=== PATIENT | female | born 1995 | race Asian ===

== ENCOUNTER 2017-09-10 20:30 | Emergency (ER) | payer OTHER ==
[2017-09-10] MEDS ORDERED: NS 1,000 ML IV ONE (21:02)
[2017-09-10] MEDS ORDERED: RANITIDINE 50 MG/2 ML VIAL IVP ONE (21:02)
[2017-09-10] MEDS ORDERED: methylPREDNISolone SOD SUCC 125 MG/2 ML VIAL IVP ONE (21:02)
--- NOTE | 2017-09-10 21:12 | EDPHY ---
H & P Time Seen by Provider: 09/10/17 20:46 HPI/ROS: CHIEF COMPLAINT: Allergic reaction HISTORY OF PRESENT ILLNESS: 22-year-old female presents to the emergency department with pruritic hives and dysphagia that began approximately 1 hour prior to arrival. Patient states that she was lying in bed and then developed sudden onset of diffuse rash. She took 25 mg of oral Benadryl without relief. She feels that she is having difficulty swallowing. She denies sore throat. Denies abdominal pain, nausea or vomiting. 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 Denies headache. Denies reported trauma. No fevers or chills. No recent travel. REVIEW OF SYSTEMS: Constitutional: No fever, no chills. Eyes: No double or blurry vision. ENT: Dysphagia. No sore throat. Respiratory: No cough, no shortness of breath. Cardiac: No chest pain. Gastrointestinal: No abdominal pain, vomiting or diarrhea. Genitourinary: No dysuria. Musculoskeletal: No neck or back pain. Skin: As above Neurological: No headache. Past Medical/Surgical History: Negative Social History: Senior at [employer] studying [employer] Smoking Status: Former smoker Physical Exam: General Appearance: Alert, no distress. Vital signs are stable. Eyes: Pupils equal and round. Extraocular motions are all intact. ENT: Mouth: Mucous membranes moist. Respiratory: No wheezing, rhonchi, or rales, lungs are clear to auscultation. Cardiovascular: Regular rate and rhythm. Gastrointestinal: Abdomen is soft and nontender, no masses, no rebound or guarding, bowel sounds normal. Neurological: Alert and oriented x 3, cranial nerves II through XII grossly intact Skin: Warm and dry. The diffuse erythematous welts consistent with hives to her chest, back and abdomen. Musculoskeletal: Nontender to palpate along the cervical, thoracic or lumbar spine. Neck is supple. Extremities: Full range of motion and no peripheral edema. Psychiatric: Patient is oriented X 3, there is no agitation. Constitutional: Initial Vital Signs Temperature (C) 36.5 C 09/10/17 20:32 Heart Rate 80 09/10/17 20:32 Respiratory Rate 18 09/10/17 20:32 Blood Pressure 108/73 09/10/17 20:32 O2 Sat (%) 97 09/10/17 20:32 O2 Delivery Mode Room Air Allergies/Adverse Reactions: cat dander Allergy (Verified 09/10/17 20:39) Home Medications: Medication Instructions Recorded EPINEPHRINE [EPIPEN] 0.3 mg IM ONCE #2 syr 09/10/17 predniSONE 40 mg PO DAILY 3 Days tab 09/10/17 Medical Decision Making ED Course/Re-evaluation: Patient presents to the emergency department with dysphagia and rash. She was given Zantac, Solu-Medrol, Benadryl IV and 0.3 mg of epinephrine IM. 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 The case was discussed with Dr. Bauer, secondary supervising physician, who also evaluated the patient. Patient was feeling much better. She was no longer having dysphagia. She was tolerating p. o. fluids will be discharged home. She was given prescription for EpiPen as well as 3 days of prednisone. Differential Diagnosis: Including but not limited to anaphylaxis, acute allergic reaction, urticaria, contact dermatitis, retained foreign body - Data Points Medications Given: Discontinued Medications Diphenhydramine HCl (Benadryl Injection) 25 mg IVP EDNOW ONE Stop: 09/10/17 21:03 Last Admin: 09/10/17 21:06 Dose: 25 mg Epinephrine HCl (Epinephrine) 0.3 mg IM EDNOW ONE Stop: 09/10/17 20:51 Last Admin: 09/10/17 20:56 Dose: 0.3 mg Sodium Chloride (Ns) 1,000 mls @ 0 mls/hr IV EDNOW ONE; Wide Open PRN Reason: Protocol Stop: 09/10/17 21:03 Last Admin: 09/10/17 21:07 Dose: 1,000 mls Methylprednisolone Sodium Succinate (Solu-Medrol) 125 mg IVP EDNOW ONE Stop: 09/10/17 21:03 Last Admin: 09/10/17 21:06 Dose: 125 mg Ranitidine HCl (Zantac) 50 mg IVP EDNOW ONE Stop: 09/10/17 21:03 Last Admin: 09/10/17 21:07 Dose: 50 mg Departure - Departure Disposition: Home, Routine, Self-Care Clinical Impression: Acute anaphylaxis Qualifiers: Encounter type: initial encounter Qualified Code(s): T78.2XXA - Anaphylactic shock, unspecified, initial encounter Condition: Good Instructions: Anaphylaxis (ED) Additional Instructions: Prednisone 40 mg daily for 3 days. You may continue Benadryl 25 mg every 6 hours as needed for itching. You may also use Pepcid 20 mg daily for symptoms of itching or allergic reaction. You should carry an EpiPen with you. It is not clear what triggered your acute allergic reaction. You should follow up with primary care provider and athletic instructor to discuss. Referrals: Rafael Berkowitz MD [Medical Doctor] - 2-3 days, call for appt. 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
[2017-09-10] MEDS ORDERED: RANITIDINE 50 MG/2 ML VIAL ONE (22:20)
[2017-09-10] MEDS ORDERED: methylPREDNISolone SOD SUCC 125 MG/2 ML VIAL ONE (22:20)
[2017-09-10 22:21] VITALS: RESP 16
[2017-09-10 22:38] VITALS: BP 104/53; PULSE 95; TEMP 97.9; O2SAT 98
== END 2017-09-10 22:37 | disposition home or self-care (01) ==
DX: T78.2XXA Anaphylactic shock, unspecified, initial encounter (principal); E86.9 Volume depletion, unspecified; Z87.891 Personal history of nicotine dependence
CPT/HCPCS: 96374; J0171; J1200; J2780